=== PATIENT | female | born 1945 ===

== ENCOUNTER 2018-06-30 06:25 | Day surgery (SDC) | payer OTHER ==
[~2018-06-30 06:25] MED LIST: ASA81 MG PO; LIPITOR40 MG PO; NORVASC10 MG PO
[2018-06-30] MEDS ORDERED: PERCOCET 5-3251 EACH PO (10:36)
== END 2018-06-30 14:45 | disposition home or self-care (01) ==
LOC: CIR.AMB 06:25
DX: D35.1 Benign neoplasm of parathyroid gland (principal)